=== PATIENT | female | born 1980 | race African-American/Black ===

== ENCOUNTER 2017-09-25 20:48 | Emergency (ER) | payer MEDICAID ==
[~2017-09-25] VITALS: Ht 167.6 cm; Wt 82.0 kg
[2017-09-25] MEDS ORDERED: TETANUS, DIPHTHERIA, PERTUSSIS VAC/PF 0.5ML (>7YR OLD) IM ONE (22:45)
[2017-09-25] MEDS ORDERED: LIDOCAINE HCL 1% 20ML VIAL (Pyxis) INJ MC ONE (23:45)
[2017-09-25] MEDS ORDERED: BACITRACIN ZINC OINT UDPKT TOP ONE (23:45)
[2017-09-26] MEDS ORDERED: ACETAMINOPHEN 325MG TABLET PO ONE (00:30)
[2017-09-26 04:40] VITALS: BP 122/76
== END 2017-09-26 04:44 | disposition home or self-care (01) ==
LOC: ER 21:33
DX: S01.81XA Laceration without foreign body of other part of head, initial encounter (principal); M54.5 Low back pain; M25.571 Pain in right ankle and joints of right foot; M79.662 Pain in left lower leg; Y00.XXXA Assault by blunt object, initial encounter; Y93.89 Activity, other specified; Y92.89 Other specified places as the place of occurrence of the external cause; Y99.8 Other external cause status
CPT/HCPCS: 70450; 70486; 72100; 73590; 73610; 81025; 99284; J3490; X7700; Z7610; 90715